=== PATIENT | female | born 1985 | race Caucasian/White ===

== ENCOUNTER 2019-07-24 23:08 | Emergency (ER) | payer MEDICARE, MEDICAID ==
[~2019-07-24] VITALS: Ht 170.2 cm; Wt 130.7 kg
[~2019-07-24 23:08] MED LIST: CLON0.5T11 PO; CLON1TAB11 PO; LAMO200T2 PO; PROP10TA16 PO; RANI-467 PO; RISP2TAB3 PO
--- NOTE | 2019-07-24 23:24 | NUR ---
ERP AT BEDSIDE TO EVAL.
[2019-07-24] MEDS ORDERED: ACETAMINOPHEN 500 MG TABLET PO ONE (23:30)
[2019-07-24] MEDS ORDERED: IBUPROFEN 200 MG TABLET PO ONE (23:30)
--- NOTE | 2019-07-24 23:31 | NUR ---
PT C/O SUDDEN ONSET PELVIC, LOWER ABD, AND "OVARY PAIN" BILAT. STATES PAIN WITH URINATION--"MY BLADDER HURTS WHEN I PEE." PT STATES SHE IS HAVING SOME VERY LIGHT BLEEDING BUT "CAN'T TELL BECAUSE MY PERIODS ARE ALWAYS IRREGULAR." NO N/V/D. PT ATTEMPTING UA SAMPLE.
[2019-07-24 23:41] LABS: BASOPHILS # (AUTO) 0.11 x10^3/uL (0-0.1); BASOPHILS % (AUTO) 1 % (0-1); EOSINOPHILS # (AUTO) 0.13 x10^3/uL (0-0.4); EOSINOPHILS % (AUTO) 1 % (1-7); LYMPHOCYTES # (AUTO) 3.07 x10^3/uL (1-3.4); LYMPHOCYTES % (AUTO) 31 % (22-44); MD NO; MEAN CORPUSCULAR HEMOGLOBIN 27.3 pg (27.0-34.8); MEAN CORPUSCULAR HGB CONC 32.4 g/dL (32.4-35.8); MEAN CORPUSCULAR VOLUME 84.3 fL (80-100); MEAN PLATELET VOLUME 7.8 fL (7.4-10.4); MONOCYTES # (AUTO) 0.72 x10^3/uL (0.2-0.8); MONOCYTES % (AUTO) 7 % (2-9); NEUTROPHILS # (AUTO) 6.01 x10^3/uL (1.8-6.8); NEUTROPHILS % (AUTO) 60 % (42-75); PLATELET COUNT 376 x10^3/uL (130-400); RED BLOOD COUNT 5.22 x10^6/uL (3.82-5.3); RED CELL DISTRIBUTION WIDTH 13.4 % (9.6-15.2)
[2019-07-24] MEDS ORDERED: IBUPROFEN 600 MG TABLET ONE (23:41)
[2019-07-24] MEDS ORDERED: ACETAMINOPHEN 500 MG TABLET ONE (23:41)
--- NOTE | 2019-07-24 23:42 | NUR ---
PT IN [place] VIA [facility]
[2019-07-24 23:53] LABS: ALBUMIN 3.9 g/dL (3.4-5.0); ANION GAP 6 mmol/L (5-15); CALCIUM 9.2 mg/dL (8.5-10.1); CHLORIDE 108 mmol/L (98-107); CREATININE 1.05 mg/dL (0.55-1.02)
[2019-07-24 23:55] LABS: CULTURE INDICATED? YES; MICROSCOPIC INDICATED
--- NOTE | 2019-07-25 00:10 | NUR ---
PT BACK FROM [place]. MEDICATED PER MAR FOR PAIN. VSS. NO FURTHER NEEDS EXPRESSED. CALL LIGHT IN REACH.
[2019-07-25] MEDS ORDERED: OXYcodone 5 MG/5 ML ORAL.SOL UDC ONE (00:54)
--- NOTE | 2019-07-25 00:57 | NUR ---
PT MEDICATED PER MAR FOR CONTINUED PAIN. TO BE D/C HOME.
[2019-07-25] MEDS ORDERED: OXYcodone 5 MG/5 ML ORAL.SOL UDC PO ONE (01:00)
[2019-07-25 01:23] VITALS: BP 135/95
== END 2019-07-25 01:26 | disposition home or self-care (01) ==
LOC: ED 23:45
DX: R10.2 Pelvic and perineal pain (principal); F41.9 Anxiety disorder, unspecified; F32.9 Major depressive disorder, single episode, unspecified; J45.909 Unspecified asthma, uncomplicated; F17.200 Nicotine dependence, unspecified, uncomplicated
CPT/HCPCS: 36415; 76830; 80048; 81001; 82040; 84703; 85025; 87086; 99284

== ENCOUNTER 2019-09-28 19:58 | Emergency (ER) | payer MEDICARE, MEDICAID ==
[~2019-09-28] VITALS: Ht 170.2 cm; Wt 133.8 kg
[2019-09-28 20:03] VITALS: BP 148/92
--- NOTE | 2019-09-28 20:06 | NUR ---
UA CUP AND INSTRUCTIONS PROVIDED
--- NOTE | 2019-09-28 20:16 | NUR ---
NAPPER RUNNER: UA COLLECTED AND SENT FROM TRIAGE
[2019-09-28 20:28] LABS: MICROSCOPIC INDICATED
[2019-09-28 20:35] LABS: CULTURE INDICATED? NO
[2019-09-28 20:51] LABS: BASOPHILS # (AUTO) 0.08 x10^3/uL (0-0.1); BASOPHILS % (AUTO) 1 % (0-1); EOSINOPHILS % (AUTO) 1 % (1-7); LYMPHOCYTES # (AUTO) 1.76 x10^3/uL (1-3.4); LYMPHOCYTES % (AUTO) 23 % (22-44); MD NO; MEAN CORPUSCULAR HEMOGLOBIN 26.8 pg (27.0-34.8); MEAN CORPUSCULAR HGB CONC 32.6 g/dL (32.4-35.8); MEAN CORPUSCULAR VOLUME 82.2 fL (80-100); MEAN PLATELET VOLUME 7.9 fL (7.4-10.4); MONOCYTES # (AUTO) 0.53 x10^3/uL (0.2-0.8); MONOCYTES % (AUTO) 7 % (2-9); NEUTROPHILS # (AUTO) 5.05 x10^3/uL (1.8-6.8); NEUTROPHILS % (AUTO) 67 % (42-75); PLATELET COUNT 346 x10^3/uL (130-400); RED CELL DISTRIBUTION WIDTH 12.7 % (9.6-15.2)
[2019-09-28 21:05] LABS: ALBUMIN 3.7 g/dL (3.4-5.0); ANION GAP 7 mmol/L (5-15); CALCIUM 9.2 mg/dL (8.5-10.1); CHLORIDE 108 mmol/L (98-107)
[2019-09-28 21:10] LABS: CREATININE 1.07 mg/dL (0.55-1.02)
[2019-09-28 21:11] LABS: ALANINE AMINOTRANSFERASE 19 U/L (12-78); ALKALINE PHOSPHATASE 75 U/L (45-117); BILIRUBIN,TOTAL 0.5 mg/dL (0.2-1.0)
--- NOTE | 2019-09-28 22:00 | NUR ---
DC EDUCATION PROVIDED, PT DEMONSTRATES UNDERSTANDING. PT AMBULATED STEADILY TO DC WITH RN AND FRIENDS
== END 2019-09-28 22:03 | disposition home or self-care (01) ==
LOC: ED 22:00
DX: N94.6 Dysmenorrhea, unspecified (principal); J45.909 Unspecified asthma, uncomplicated; R11.2 Nausea with vomiting, unspecified; F17.200 Nicotine dependence, unspecified, uncomplicated
CPT/HCPCS: 36415; 80053; 81001; 84702; 85025; 99283

== ENCOUNTER 2021-06-13 20:49 | Emergency (ER) | payer MEDICARE, MEDICAID ==
[~2021-06-13] VITALS: Ht 170.2 cm; Wt 152.9 kg
[~2021-06-13 20:49] MED LIST changes: +CLON-364 PO; -CLON0.5T11 PO; -LAMO200T2 PO; +LAMO200T6 PO; -RISP2TAB3 PO; +RISP2TAB80 PO
--- NOTE | 2021-06-13 20:55 | NUR ---
EKG DONE IN TRIAGE.
[2021-06-13 22:20] LABS: BASOPHILS % (AUTO) 1 % (0-1); EOSINOPHILS % (AUTO) 2 % (1-7); LYMPHOCYTES % (AUTO) 30 % (22-44); MEAN CORPUSCULAR HEMOGLOBIN 27.2 pg (27.0-34.8); MEAN CORPUSCULAR HGB CONC 33.1 g/dL (32.4-35.8); MEAN PLATELET VOLUME 7.4 fL (7.4-10.4); MONOCYTES % (AUTO) 7 % (2-9); NEUTROPHILS % (AUTO) 61 % (42-75); PLATELET COUNT 348 x10^3/uL (130-400); RED BLOOD COUNT 4.88 x10^6/uL (3.82-5.3); RED CELL DISTRIBUTION WIDTH 13.4 % (9.6-15.2)
--- NOTE | 2021-06-13 22:22 | NUR ---
PATIENT WALKED BACK FROM LOBBY WITH CHIEF C/O CHEST PAIN SINCE 1930. PATIENT REPORTS CHEST PAIN, DIZZINESS, AND PAIN IN LEFT JAW. NADN, CONNECTED TO MONITOR, VSS, CALL LIGHT WITHIN REACH. SIGNIFICANT OTHER AT BEDSIDE.
[2021-06-13 22:27] VITALS: BP 147/93
[2021-06-13 22:29] LABS: ALBUMIN 3.3 g/dL (3.4-5.0); ANION GAP 6 mmol/L (5-15); CALCIUM 8.6 mg/dL (8.5-10.1); CHLORIDE 107 mmol/L (98-107)
[2021-06-13 22:35] LABS: ALANINE AMINOTRANSFERASE 22 U/L (12-78); ALKALINE PHOSPHATASE 65 U/L (45-117); BILIRUBIN,TOTAL 0.4 mg/dL (0.2-1.0); CREATININE 1.23 mg/dL (0.55-1.02); TOTAL PROTEIN 7.6 g/dL (6.4-8.2); TROPONIN I < 0.015 ng/mL (0.000-0.045)
--- NOTE | 2021-06-13 23:08 | NUR ---
Patient given discharge instructions and they have confirmed that they understand the instructions. Patient ambulatory with steady gait. NAD, all questions answered appropriately, denies additional needs at this time. No personal belongings left in room after discharge.
== END 2021-06-13 23:09 | disposition home or self-care (01) ==
LOC: ED 22:00
DX: R07.2 Precordial pain (principal); J45.909 Unspecified asthma, uncomplicated; K21.9 Gastro-esophageal reflux disease without esophagitis; F17.210 Nicotine dependence, cigarettes, uncomplicated
CPT/HCPCS: 36415; 71045; 80053; 84484; 85025; 93005; 99285; 99406